=== PATIENT | male | born 1950 | race Caucasian/White ===

== ENCOUNTER 2018-08-11 06:22 | Day surgery (SDC) | payer OTHER ==
[2018-08-09 15:10] VITALS: BP 160/91
[2018-08-09 15:40] LABS: BASOPHILS # (AUTO) 0.03 x10^3/uL (0-0.1); BASOPHILS % (AUTO) 1 % (0-1); EOSINOPHILS # (AUTO) 0.37 x10^3/uL (0-0.4); EOSINOPHILS % (AUTO) 5 % (1-7); LYMPHOCYTES # (AUTO) 1.31 x10^3/uL (1-3.4); LYMPHOCYTES % (AUTO) 18 % (22-44); MD NO; MEAN CORPUSCULAR HEMOGLOBIN 29.4 pg (27.5-34.5); MEAN CORPUSCULAR HGB CONC 32.9 g/dL (33.2-36.2); MEAN CORPUSCULAR VOLUME 89.5 fL (81-97); MEAN PLATELET VOLUME 8.2 fL (7.4-10.4); MONOCYTES # (AUTO) 0.55 x10^3/uL (0.2-0.8); MONOCYTES % (AUTO) 7 % (2-9); NEUTROPHILS # (AUTO) 5.16 x10^3/uL (1.8-6.8); NEUTROPHILS % (AUTO) 70 % (42-75); PLATELET COUNT 251 x10^3/uL (130-400); RED BLOOD COUNT 5.17 x10^6/uL (4.38-5.82); RED CELL DISTRIBUTION WIDTH 13.9 % (9.4-14.8)
[2018-08-09 15:49] LABS: ANION GAP 8 mmol/L (5-15); CALCIUM 8.7 mg/dL (8.5-10.1); CHLORIDE 107 mmol/L (98-107)
[2018-08-09 15:51] LABS: CREATININE 1.21 mg/dL (0.7-1.3)
[~2018-08-11] VITALS: Ht 175.3 cm; Wt 120.5 kg
[~2018-08-11 06:22] MED LIST: AMLO10TA6 PO; AMLO5TAB4 PO; ASPI-621 PO; ATOR80TA PO; LEVO137T25 PO; LEVO200T5 PO; METO25TA35 PO; NITR0.4T SL; OLME40TA12 PO; OXYC5TAB3 PO; PRAS10TA4 PO; ROSU5TAB PO; VALS160T3 PO
[2018-08-11] MEDS ORDERED: FENTANYL PF 100 MCG/2ML ONE (08:39)
[2018-08-11] MEDS ORDERED: MIDAZOLAM 1 MG/ML, 5ML ONE (08:39)
[2018-08-11] MEDS ORDERED: LIDOCAINE 2%, 10ML ONE (08:52)
== END 2018-08-11 16:01 | disposition home or self-care (01) ==
LOC: CACL 06:22
PROVIDERS: ATTEND Internal Medicine Cardiovascular Disease
DX: I25.119 Atherosclerotic heart disease of native coronary artery with unspecified angina pectoris (principal); E78.5 Hyperlipidemia, unspecified; I10 Essential (primary) hypertension; I25.2 Old myocardial infarction; Z79.899 Other long term (current) drug therapy; Z91.09 Other allergy status, other than to drugs and biological substances
CPT/HCPCS: 36415; 80048; 85025; 93458; 99156; C1760; C1769; C1894; J2250; J3010; J3490; Q9967; J2001

== ENCOUNTER → 2019-05-11 | Outpatient (CLI) | payer OTHER ==
[~2019-05-11] MED LIST changes: -AMLO10TA6 PO; +AMLO10TA8 PO; -ASPI-621 PO; +ASPI81TA45 PO; -NITR0.4T SL; +NITR0.4T41 SL
== END | disposition home or self-care (01) ==
LOC: CVU 09:44
PROVIDERS: ATTEND Internal Medicine Cardiovascular Disease
DX: I34.0 Nonrheumatic mitral (valve) insufficiency (principal); I25.10 Atherosclerotic heart disease of native coronary artery without angina pectoris; I10 Essential (primary) hypertension; E78.5 Hyperlipidemia, unspecified; I25.2 Old myocardial infarction
CPT/HCPCS: 93306